=== PATIENT | male | born 2000 | race Hispanic/Latino ===

== ENCOUNTER 2020-01-17 09:24 | Emergency (ER) | payer OTHER, SELFPAY ==
[2020-01-17 09:47] VITALS: BP 130/74; PULSE 71; RESP 16; TEMP 36.6; O2SAT 99
--- NOTE | 2020-01-17 10:21 | ED.GENADULT ---
HPI - General Adult General Chief complaint: Upper Respiratory Infection Stated complaint: sore throat/cough Time Seen by Provider: 01/17/20 10:22 Source: patient Mode of arrival: ambulatory Limitations: no limitations History of Present Illness HPI narrative: 19-year-old male patient presents to the [facility] with complaints of sore throat and cough. Patient states that the sore throat start about 7 days ago and a sore throat kind of comes and goes but is not consistent. Patient states a slight cough. A little bit of runny nose. Denies any chest pain, shortness of breath. Patient states he has had some chills that started yesterday and today. Denies any fevers that he is aware of. Patient states he did not get a flu shot this year. Patient states he has been taking Tylenol that has helped with his symptoms. Related Data Allergies Allergy/AdvReac Type Severity Reaction Status Date / Time No Known Allergies Allergy Verified 01/17/20 10:10 Review of Systems Review of Systems: Narrative: CONSTITUTIONAL: Denies fever, positive chills, denies sweats. EYES: Denies visual changes, redness, or discharge. ENT: Denies rhinorrhea, congestion, positive intermittent sore throat, denies otalgia. CARDIOVASCULAR: Denies chest pain, palpitations, or edema. RESPIRATORY: Positive mild nonproductive cough, denies dyspnea. GASTROINTESTINAL: Denies abdominal pain, nausea, vomiting, or diarrhea. GENITOURINARY: Denies dysuria or hematuria. SKIN: Denies rash or itching. MUSCULOSKELETAL: Denies back pain, joint pain, or myalgia. NEUROLOGIC: Denies headache, numbness, or weakness. PSYCHIATRIC: Denies anxiety or depression. PMFSH Social History Social History Gender identity (if verbalized by the patient): Male Comments At the time of my signature I agree with nursing past medical history, surgical, social, and family history. There is no relevant family history pertinent to the presenting complaint. Exam Narrative: Exam Narrative: GENERAL: Well-appearing, well-nourished, and in no acute distress. HEAD: Normocephalic, atraumatic. No tenderness noted to frontal and maxillary sinuses on palpation EYES: PERRLA and EOMI. ENT: Nares with erythema and edema noted bilaterally, pain, no rhinorrhea or epistaxis. Mucous membranes moist. Posterior pharynx with no erythema, tonsillar margin, exudates or lesions present. Bilateral TMs are clear with no erythema or foreign bodies in the canal. NECK: Supple. No lymphadenopathy CHEST: Clear to auscultation. No respiratory distress. HEART: Regular rate and rhythm. No murmur heard. Normal peripheral pulses. ABDOMEN: Soft, nontender, nondistended, normal active bowel sounds. EXTREMITIES: Normal range of motion. No edema. SKIN: Warm, dry, no rash. NEURO: No focal deficits. Alert and oriented x3. Course Vital Signs Vital signs: Vital Signs Temperature 36.6 C 01/17/20 09:47 Pulse Rate 71 01/17/20 09:47 Respiratory Rate 16 01/17/20 09:47 Blood Pressure 130/74 01/17/20 09:47 Pulse Oximetry 99 01/17/20 09:47 Temperature 36.6 C 01/17/20 09:47 Pulse Rate 71 01/17/20 09:47 Respiratory Rate 16 01/17/20 09:47 Blood Pressure 130/74 01/17/20 09:47 Pulse Oximetry 99 01/17/20 09:47 Vital signs reviewed. The patient has been informed that they may have pre-hypertension or Hypertension based on a BP reading in the department. I recommend that the patient call the primary care provider listed on their discharge instructions or a physician of their choice this week to arrange follow up for further evaluation of possible pre-hypertension or Hypertension Medical Decision Making Differential Diagnosis Differential Diagnosis: Differential diagnosis: Allergic rhinitis, chronic sinusitis, tonsillitis, acute sinusitis, infectious mononucleosis, seasonal influenza, pertussis, diphtheria, meningococcal disease, viral syndrome, viral bronc
== END 2020-01-17 10:35 | disposition home or self-care (01) ==
PROVIDERS: Emergency Provider Nurse Practitioner Family
DX: J06.9 Acute upper respiratory infection, unspecified (principal); J02.9 Acute pharyngitis, unspecified
CPT/HCPCS: 99211; G0463

== ENCOUNTER 2021-01-07 10:34 | Emergency (ER) | payer BC, SELFPAY ==
[2021-01-07 10:55] VITALS: BP 137/70; PULSE 72; RESP 16; TEMP 36.6; O2SAT 100
--- NOTE | 2021-01-07 10:57 | PC.NURSE ---
1055- Strong equal education administrator bilaterally.
--- NOTE | 2021-01-07 11:07 | ED_ITS ---
HPI - Headache General Chief Complaint: Headache Stated Complaint: HEADACHE Source: patient and RN notes reviewed Limitations: no limitations History of Present Illness HPI Narrative: The patient, a non-smoker/occasional drinker, presents with 1/2- week worsening of several year history of headaches. Patient states he had a prior noncontributory head CT scan in the past. He now complains of typical gradual onset frontal headache that was unresponsive with OTC Aleve. No Covid symptoms, and tested positive reportedly in August; no fever, cough, loss of taste/smell, CP, sneezing/wheezing, S OB, sinus discharge. No speech?visual changes, lateralizing weakness, numbness. PMH is noncontributory, mother has had migraines; he requests a today work excuse. Related Data Allergies Allergy/AdvReac Type Severity Reaction Status Date / Time No Known Allergies Allergy Verified 01/07/21 10:51 Review of Systems Review of Systems: Narrative: General/Constitutional: No weight loss,fever Eyes: N0: Redness,discharge Ears/Nose/Throat: No: Epistaxis,ear discharge Respiratory: Denies: Hemoptysis Gastrointestinal: No Vomiting, Bleeding-rectal Skin: No Lumps, eruption Neurologic: No Focal Weakness,Sz Hematologic: Denies: Petechiae/Purpura Psychiatric: No: Suicida ideationl All Other Systems: Reviewed and Negative [facility] Social History Social History Gender identity (if verbalized by the patient): Male Comments At time of signature, agree with nursing past medical, surgical, social and family history. There is no relevant family history pertinent to the presenting complaint Exam Narrative: Exam Narrative: General Appearance: Well appearing, No distress EYE: PERRLA, Conjunctiva clear Neurological: A&O x3, CN II-X intact Ears: External ear normal Nose: Normal nose Mouth/Throat: Normal appearing, Normal lips Neck: Supple Respiratory: Airway patent, No respiratory distress Musculoskeletal: Full ROM Skin: Warm, Dry Psychiatric: Normal mood, Normal affect Course Vital Signs Vital signs: Vital Signs Temperature 97.9 F 01/07/21 10:55 Pulse Rate 72 01/07/21 10:55 Respiratory Rate 16 01/07/21 10:55 Blood Pressure 137/70 01/07/21 10:55 Pulse Oximetry 100 01/07/21 10:55 Temperature 97.9 F 01/07/21 10:55 Pulse Rate 72 01/07/21 10:55 Respiratory Rate 16 01/07/21 10:55 Blood Pressure 137/70 01/07/21 10:55 Pulse Oximetry 100 01/07/21 10:55 Discharge Plan Discharge Clinical Impression: Headache disorder Patient Disposition: Home, Self-Care Condition: Stable Instructions: Migraine Headache (ED) Prescriptions: New tramadol 50 mg tablet 50 mg PO TID PRN (Reason: pain) Qty: 15 RF: 1 [id number] [Fioricet] 50-300-40 mg capsule 1 - 2 cap PO HS PRN (Reason: pain) Qty: 10 RF: 0 Follow-up/Referrals: UNKNOWN,DOCTOR [Primary Care Provider] - Stand Alone Forms: Work/School Release IP
== END 2021-01-07 11:12 | disposition home or self-care (01) ==
PROVIDERS: Emergency Provider Emergency Medicine
DX: R51.9 Headache, unspecified (principal)
CPT/HCPCS: 99213; G0463

== ENCOUNTER 2021-01-12 13:41 | Emergency (ER) | payer BC, SELFPAY ==
[2021-01-12 13:57] VITALS: BP 134/64; PULSE 83; RESP 16; TEMP 36.8; O2SAT 100
--- NOTE | 2021-01-12 14:04 | ED.NAVMDI ---
HPI - Nausea/Vomiting/Diarrhea General Chief complaint: Nausea/Vomiting/Diarrhea Stated complaint: Stomach Pain Time Seen by Provider: 01/12/21 14:04 Source: patient and RN notes reviewed Mode of arrival: ambulatory Limitations: no limitations History of Present Illness HPI Narrative: 20-year-old male presents to the [facility] with complaints of diarrhea this morning states he has had 3 episodes. He believes that he ate chips for breakfast yesterday which caused cramping yesterday. No pain today except for the 3 episodes of diarrhea. Taking Pepto-Bismol and states that the symptoms have improved. Patient in no acute distress on exam Related Data Home Medications Medication Instructions Recorded Confirmed No Home Medications 01/12/21 01/12/21 Allergies Allergy/AdvReac Type Severity Reaction Status Date / Time No Known Allergies Allergy Verified 01/12/21 14:05 Review of Systems Review of Systems: Narrative: CONSTITUTIONAL: Denies fever, chills, or sweats. EYES: Denies visual changes, redness, or discharge. ENT: Denies rhinorrhea, congestion, sore throat, or otalgia. CARDIOVASCULAR: Denies chest pain, palpitations, or edema. RESPIRATORY: Denies cough or dyspnea. GASTROINTESTINAL: Reports abdominal pain, nausea, and diarrhea. GENITOURINARY: Denies dysuria or hematuria. SKIN: Denies rash or itching. MUSCULOSKELETAL: Denies back pain, joint pain, or myalgia. NEUROLOGIC: Denies headache, numbness, or weakness. PSYCHIATRIC: Denies anxiety or depression. All other systems reviewed are negative, except as documented in HPI. PMFSH Social History Social History Gender identity (if verbalized by the patient): Male Comments At the time of my signature, I reviewed and agree with the nursing past medical, surgical, social, and family history. There is no relevant family history pertinent to the patient complaint. Exam Narrative: Exam Narrative: GENERAL: This is a well-nourished, well-developed patient, in no apparent distress. HEAD: normocephalic, atraumatic. EYES: PERRL. Sclera clear/white. Vision is grossly intact. NECK: Neck supple, non-tender. CARDIOVASCULAR: Regular rate and rhythm without murmurs, gallops, or rubs. RESPIRATORY: Clear to auscultation. Breath sounds equal bilaterally. No wheezes, rales, or rhonchi. GASTROINTESTINAL: Abdomen soft, non-tender, nondistended. Bowel sounds are active. No hepato-splenomegaly, or palpable masses. No guarding. SKIN: warm, intact with no suspicious lesions or rash, good texture and turgor. NEURO: awake, alert, and oriented to person, place and time. There were no obvious focal neurologic abnormalities. EXTREMITIES: No joint tenderness, effusion, or edema noted. BACK: Nontender without deformity. Course Vital Signs Vital signs: Vital Signs Temperature 98.3 F 01/12/21 13:57 Pulse Rate 83 01/12/21 13:57 Respiratory Rate 16 01/12/21 13:57 Blood Pressure 134/64 01/12/21 13:57 Pulse Oximetry 100 01/12/21 13:57 Temperature 98.3 F 01/12/21 13:57 Pulse Rate 83 01/12/21 13:57 Respiratory Rate 16 01/12/21 13:57 Blood Pressure 134/64 01/12/21 13:57 Pulse Oximetry 100 01/12/21 13:57 Reviewed, within defined limits MDM - Nausea/Vomiting/Diarrhea Differential Diagnosis Differential diagnosis: Likely food poisoning and gastroenteritis Critical Care Time Critical Care Time Critical Care Time: No Discharge Plan Discharge Clinical Impression: Diarrhea Qualifiers: Diarrhea type: unspecified type Qualified Code(s): R19.7 - Diarrhea, unspecified Patient Disposition: Home, Self-Care Condition: Stable Instructions: Diet for Stomach Ulcers and Gastritis (ED), Gastroenteritis (ED), Acute Diarrhea (ED) Additional Instructions: Be sure to stay hydrated with 8 to 10 glasses of water, juice, Gatorade today. If diarrhea persists you can take Imodium or Pepto-Bismol which is [id number]
== END 2021-01-12 14:17 | disposition home or self-care (01) ==
PROVIDERS: Emergency Provider Nurse Practitioner
DX: R19.7 Diarrhea, unspecified (principal)
CPT/HCPCS: 99211; G0463

== ENCOUNTER 2021-03-11 11:27 | Emergency (ER) | payer SELFPAY ==
--- NOTE | 2021-03-11 11:36 | ED.HA ---
HPI - Headache General Chief Complaint: Headache Stated Complaint: headache Time Seen by Provider: 03/11/21 11:40 Source: patient and RN notes reviewed Mode of arrival: ambulatory Limitations: no limitations History of Present Illness HPI Narrative: 20-year-old male presents to the [facility] stating he is here with a typical migraine that started 2 days ago. Has taken ibuprofen with some relief. Patient denies any nausea vomiting or diarrhea. Mildly light sensitive. States he has a dull ache to the top of his head. Denies any past medical or surgical history. Reports he has had similar episodes in the past. States he normally needs a couple of days off from work and gets better. Reports going to a local hospital approximately a year ago, diagnosed with migraines after a CT scan which showed no acute findings per patient. Requesting a work note for 1 week. States these migraines usually last week and then he can go back to work. Related Data Allergies Allergy/AdvReac Type Severity Reaction Status Date / Time No Known Allergies Allergy Verified 03/11/21 11:46 Review of Systems Review of Systems: Narrative: CONSTITUTIONAL: Denies fever, chills, or sweats. EYES: Denies visual changes, redness, or discharge. ENT: Denies rhinorrhea, congestion, sore throat, or otalgia. CARDIOVASCULAR: Denies chest pain, palpitations, or edema. RESPIRATORY: Denies cough or dyspnea. GASTROINTESTINAL: Denies abdominal pain, nausea, vomiting, or diarrhea. GENITOURINARY: Denies dysuria or hematuria. SKIN: Denies rash or itching. MUSCULOSKELETAL: Denies back pain, joint pain, or myalgia. NEUROLOGIC: Reports headache without numbness or weakness. PSYCHIATRIC: Denies anxiety or depression. All other systems reviewed are negative, except as documented in HPI. PMFSH Surgical History Surgical History (Updated 03/11/21 @ 14:41 by Rosenda Cole) H/O eye surgery Left eye Social History Social History Gender identity (if verbalized by the patient): Male Comments At the time of my signature, I reviewed and agree with the nursing past medical, surgical, social, and family history. There is no relevant family history pertinent to the patient complaint. Exam Narrative: Exam Narrative: GENERAL: This is a well-nourished, well-developed patient, in no apparent distress. Alert and oriented x3 HEAD: normocephalic, atraumatic. EYES: PERRL. Sclera clear/white. Vision is grossly intact. EARS: External ears normal, auditory canals clear and without drainage, TMs normal without perforation. Hearing grossly intact. NOSE: External nose normal with no obvious nasal discharge, nares without redness, no rhinorrhea. THROAT: Mucous membranes moist, posterior pharynx clear. NECK: Neck supple, non-tender without lymphadenopathy, masses or thyromegaly. CARDIOVASCULAR: Regular rate and rhythm without murmurs, gallops, or rubs. RESPIRATORY: Clear to auscultation. Breath sounds equal bilaterally. No wheezes, rales, or rhonchi. SKIN: warm, Dry, intact with no suspicious lesions or rash, good texture and turgor. NEURO: awake, alert, and oriented to person, place and time. There were no obvious focal neurologic abnormalities. EXTREMITIES: No joint tenderness, effusion, or edema noted. BACK: Nontender without deformity. Course Vital Signs Vital signs: Vital Signs Temperature 98.1 F 03/11/21 11:38 Pulse Rate 78 03/11/21 11:38 Respiratory Rate 16 03/11/21 11:38 Blood Pressure 128/67 03/11/21 11:38 Pulse Oximetry 99 03/11/21 11:38 Temperature 98.1 F 03/11/21 11:38 Pulse Rate 78 03/11/21 11:38 Respiratory Rate 16 03/11/21 11:38 Blood Pressure 128/67 03/11/21 11:38 Pulse Oximetry 99 03/11/21 11:38 Reviewed, within defined limits MDM - Headache MDM Narrative Medical decision making narrative: Discharge instructions reviewed with patient, as well as provided in writing per nursing
[2021-03-11 11:38] VITALS: BP 128/67; PULSE 78; RESP 16; TEMP 36.7; O2SAT 99
== END 2021-03-11 12:04 | disposition home or self-care (01) ==
PROVIDERS: Emergency Provider Nurse Practitioner
DX: G43.909 Migraine, unspecified, not intractable, without status migrainosus (principal)
CPT/HCPCS: 99213; G0463

== ENCOUNTER 2023-04-07 11:13 | Emergency (ER) | payer SELFPAY ==
--- NOTE | 2023-04-07 11:19 | ED.URI ---
HPI - URI/Sore Throat General Chief Complaint: Upper Respiratory Infection Stated Complaint: Sore Throat Time Seen by Provider: 04/07/23 11:19 Source: patient Mode of arrival: ambulatory Limitations: no limitations History of Present Illness HPI Narrative: Patient is a 22-year-old male who presents with 2 months of throat irritation and soreness. Patient states symptoms started when the weather started to warm up. Reports occasional congestion and ear irritation but none at this time. Patient is only used [id number] mouthwash with relief of sore throat. Patient denies any fever, chills, nausea, vomiting, diarrhea. [facility] and [facility] came [facility] negative. Related Data Home Medications Medication Instructions Recorded Confirmed No Home Medications 04/07/23 04/07/23 Allergies Allergy/AdvReac Type Severity Reaction Status Date / Time No Known Allergies Allergy Verified 04/07/23 11:24 Review of Systems Review of Systems: All systems reviewed & are unremarkable except as noted in HPI and below Constitutional: Constitutional: Denies body ache(s), Denies chills, Denies fatigue, Denies fever(s), Denies headache(s), Denies malaise and Denies weakness Eyes: Eyes: Denies blurry vision, Denies itchy eyes and Denies loss of vision ENT: Denies otalgia, Denies headache(s), Denies nasal congestion, Denies sinus pain and Reports sore throat Cardiovascular: Cardiovascular: Denies chest pain, Denies irregular heart rhythm and Denies dyspnea Respiratory: Respiratory: Denies cough and Denies dyspnea Gastrointestinal: Gastrointestinal: Denies abdominal pain, Denies diarrhea, Denies nausea and Denies vomiting Musculoskeletal: Musculoskeletal: Denies back pain, Denies myalgias and Denies arthralgias Integumentary/Breasts: Skin/Breast: Denies pruritus and Denies rash Neurologic: Denies headache(s), Denies loss of vision and Denies weakness Psychiatric: Psychiatric: Reports no additional psychiatric complaints Endocrine: Endocrine: Denies fatigue Allergic/Immunologic: Allergic/Immunologic: Denies itchy eyes PMFSH Surgical History Surgical History (Updated 03/11/21 @ 14:41 by Rosenda Cole APRN) H/O eye surgery Left eye Social History Social History Gender identity (if verbalized by the patient): Male Comments At time of signature, agree with nursing past medical, surgical, social and family history. There is no relevant family history pertinent to the presenting complaint. Exam Const: General: cooperative, healthy appearing, comfortable, no acute distress and well nourished Nutritional Appearance: well nourished Orientation/consciousness: patient oriented x3 Limitations: no limitations HENMT: Head: normal to inspection, normocephalic and atraumatic Ears: hearing grossly normal bilaterally, external ears normal, TM's normal bilaterally, EAC's normal and no periauricular adenopathy Face/Nose/Sinus: Normal external nose present, Normal nares present, Normal nasal mucous membranes and turbinates present, normal facial exam, sinuses nontender and face symmetric Face and sinus: normal facial exam, sinuses nontender and face symmetric Mouth: Yes Normal oral and palatal mucosa present, Yes lip normal, Yes tongue normal, Yes Normal salivary glands and ducts present, Yes oropharynx normal and Yes moist mucous membranes Teeth and gingiva: dentition normal Throat: posterior oropharynx normal, tonsils normal and uvula midline Eyes: General: appearance normal, both eyes and all related structures Alignment and Position: alignment normal and position normal Periorbital: periorbital findings normal Eyelids: eyelids normal Pupils: Equal, round and reactive pupils present Neck: Neck: normal visual inspection, full ROM, no lymphadenopathy and supple Chest: Chest palpation & inspection: normal inspection of the chest and
[2023-04-07 11:26] VITALS: BP 148/80; PULSE 76; RESP 16; TEMP 36.8; O2SAT 98
== END 2023-04-07 11:46 | disposition home or self-care (01) ==
PROVIDERS: Emergency Provider Nurse Practitioner Family
DX: J30.2 Other seasonal allergic rhinitis (principal); J02.9 Acute pharyngitis, unspecified
CPT/HCPCS: 87081; 87880; 99213; G0463